=== PATIENT | female | born 1985 ===

== ENCOUNTER 2018-04-16 17:08 | Outpatient (CLI) | payer OTHER | END 2018-04-16 17:09 | disposition home or self-care (01) | LOC: NAV LAB 17:08 | PROVIDERS: ATTEND Obstetrics & Gynecology | DX: Z34.91 Encounter for supervision of normal pregnancy, unspecified, first trimester (principal); Z3A.01 Less than 8 weeks gestation of pregnancy | CPT/HCPCS: 84702 ==